=== PATIENT | male | born 1980 | race Caucasian/White ===

== ENCOUNTER 2019-07-19 07:48 | Emergency (ER) | payer MEDICARE, OTHER ==
[2019-07-19 07:53] VITALS: BP 140/91; PULSE 105; RESP 18; TEMP 98.5
[2019-07-19] MEDS ORDERED: PROPARACAINE 0.5% OPHTH DROPS 15 ML BTL RIGHT EYE STA (07:56)
[2019-07-19] MEDS ORDERED: FLUORESCEIN STRIPS 1 MG STRIP RIGHT EYE ONE (07:56)
[2019-07-19] MEDS ORDERED: DIPH,PERTUS(ACELL)TETVAC-LF 0.5 ML VIAL IM ONE (08:02)
--- NOTE | 2019-07-19 08:17 | ED ---
General Adult HPI - General Chief complaint: Eye Problems Stated complaint: metal in eye Time Seen by Provider: 07/19/19 07:51 Source: patient, family, RN notes reviewed, old records reviewed Mode of arrival: ambulatory Limitations: no limitations - History of Present Illness Initial comments: 38 yo male presenting for evaluation of suspected foreign body in the right eye. Patient had been cutting metal on Thursday which was 3 days prior to today. He was not wearing safety glasses. He does not wear contact lenses. He's felt an irritation in his right eye since that time. He denies any vision changes. No other injury reported, uncertain of his tetanus status. - Related Data Previous Rx's Medication Instructions Recorded Erythromycin Ophth Oint [Romycin 1 applic RIGHT EYE QID #1 gm 07/19/19 Ophth Oint] Allergies Allergy/AdvReac Type Severity Reaction Status Date / Time No Known Allergies Allergy Verified 07/19/19 07:53 Review of Systems ROS Statement: Those systems with pertinent positive or pertinent negative responses have been documented in the HPI. ROS Other: All systems not noted in ROS Statement are negative. Past Medical History Past Medical History: No Reported History History of Any Multi-Drug Resistant Organisms: None Reported Past Surgical History: No Surgical Hx Reported Past Psychological History: No Psychological Hx Reported Smoking Status: Never smoker Past Alcohol Use History: None Reported Past Drug Use History: None Reported General Exam Limitations: no limitations General appearance: alert, in no apparent distress Head exam: Present: atraumatic, normocephalic Eye exam: Present: PERRL, conjunctival injection, other (Corneal foreign body with rust ring at the 3 o'clock position of the right cornea. There is negative Bong's test. Minimal uptake at the site of injury.) ENT exam: Present: normal exam Neck exam: Present: normal inspection. Absent: tenderness, meningismus Respiratory exam: Present: normal lung sounds bilaterally. Absent: respiratory distress Cardiovascular Exam: Present: regular rate, normal rhythm Course Vital Signs 07/19/19 07:51 Temperature 98.5 F Pulse Rate 105 H Respiratory 18 Rate Blood Pressure 140/91 O2 Sat by Pulse 99 Oximetry Medical Decision Making - Medical Decision Making 38-year-old male with corneal foreign body and rust ring. Anterior chamber is clear. Pupils are equal round react to light. He has significant injection of the sclera and conjunctiva. He is some purulent drainage from the eye itself. Foreign body is deeply embedded within the cornea. Will require close follow-up with ophthalmology. We did call Dr. Norman, he will see him in the office in 90 minutes. Patient given erythromycin ointment RX Disposition Clinical Impression: Corneal abrasion, Corneal foreign body Disposition: HOME SELF-CARE Condition: Good Instructions (If sedation given, give patient instructions): Eye Foreign Body (ED), Corneal Abrasion (ED) Prescriptions: Erythromycin Ophth Oint [Romycin Ophth Oint] 1 applic RIGHT EYE QID #1 gm Is patient prescribed a controlled substance at d/c from ED?: No Referrals: Kenn Beverly MD [Primary Care Provider] - 1-2 days Joel Norman MD [STAFF PHYSICIAN] - 1-2 days Time of Disposition: 08:24
== END 2019-07-19 08:37 | disposition home or self-care (01) ==
LOC: EC 07:48
DX: T15.01XA Foreign body in cornea, right eye, initial encounter (principal); Z23 Encounter for immunization
CPT/HCPCS: 90471; 90715; 99283

== ENCOUNTER → 2019-09-06 | Outpatient (CLI) | payer MEDICARE, OTHER ==
--- NOTE | 2019-09-06 16:39 | XR ---
EXAMINATION TYPE: XR knee complete RT DATE OF EXAM: 09/06/2019 COMPARISON: None HISTORY: Injury, pain TECHNIQUE: Three-view right knee FINDINGS: There is a lucency extending from the tibial spines into the metaphysis of the tibia compat ible with a longitudinal fracture. Small joint effusion remains present. Anterior superior patellar spur is noted. No additional areas suspicious for fracture is evident. IMPRESSION: 1. Longitudinal fracture extending into the metaphysis from the tibial spine region. This could be b ernst evaluated with CT. A Taylor level critical message alert has been initiated for Kenn Beverly MD via the [employer] Critical Results System on 09/06/2019 4:36 PM. This message alert has been sent to Kenn Beverly MD via the preferences provided by the clinician for the receipt of Radiology Critical Findings. Message ID [id number].
== END | disposition home or self-care (01) ==
LOC: RADXRMAIN 16:01
PROVIDERS: ATTEND Internal Medicine
DX: S82.111A Displaced fracture of right tibial spine, initial encounter for closed fracture (principal)

== ENCOUNTER → 2019-09-23 | Outpatient (CLI) | payer MEDICARE, OTHER ==
--- NOTE | 2019-09-23 14:17 | CT ---
EXAMINATION TYPE: CT knee RT wo con DATE OF EXAM: 09/23/2019 COMPARISON: X-ray 09/06/2019 HISTORY: Right knee-displaced fracture of lateral condyle CT DLP: 394.6 mGycm Automated exposure control for dose reduction was used. FINDINGS: There is a mildly displaced fracture involving the intercondylar notch extending to the articular ezra face. The fracture line does extend into the proximal epiphysis of the tibia. Approximate fracture line dis placement measurement of 1.3 mm. Note is made that the fracture extends through both ends of the inte rcondylar notch with free fragment fracture noted. Remaining osseous structures intact. Small amount of fluid in the suprapatellar bursa. There is soft tissue edema noted. IMPRESSION: MILDLY DISPLACED INTRA-ARTICULAR FRACTURE OF THE INTERCONDYLAR NOTCH EXTENDING INTO THE PROXIMAL TIBI A WITH DISPLACEMENT MEASURING APPROXIMATELY 1.3 MM.
== END | disposition home or self-care (01) ==
LOC: RADCTMAIN 13:12
PROVIDERS: ATTEND Orthopaedic Surgery
DX: S82.121A Displaced fracture of lateral condyle of right tibia, initial encounter for closed fracture (principal)

== ENCOUNTER → 2020-07-23 | Outpatient (CLI) | payer MEDICARE, OTHER ==
--- NOTE | 2020-07-23 08:20 | US ---
EXAMINATION TYPE: US liver DATE OF EXAM: 07/23/2020 COMPARISON: NONE CLINICAL HISTORY: R945 Abnormal Liver Function. Abnormal labs EXAM MEASUREMENTS: Liver Length: 14.4 cm Gallbladder Wall: 0.2 cm CBD: 0.3 cm Right Kidney: 10.4 x 3.7 x 4.0 cm Pancreas: Obscured by bowel gas Liver: Visualized portions appeared wnl Gallbladder: wnl Evidence for sonographic Vaca's sign: No CBD: wnl Right Kidney: wnl IMPRESSION: 1. No acute process.
== END | disposition home or self-care (01) ==
LOC: RADUSWWP 07:36
PROVIDERS: ATTEND Internal Medicine
DX: R94.5 Abnormal results of liver function studies (principal)
CPT/HCPCS: 76705

== ENCOUNTER → 2022-01-22 | Outpatient (CLI) | payer MEDICARE, OTHER ==
--- NOTE | 2022-01-23 08:53 | USB ---
Reason for Exam: Follow-up at short interval from prior study. Technique: Method: Whole Breast Handheld. Findings: The whole breast of the right breast, the axilla of the right breast and the retroareolar of the right breast were scanned. A complete US of all four quadrants of the breast and retro-areolar region were reviewed. No solid or cystic masses are identified. Normal appearing right axillary lymph node marked towards end of study. Overall Assessment: Negative, BI-RAD 1 Management: Clinical Management of the right breast. Managed clinically patient's symptoms of pain. Results were given to the patient verbally at the time of exam. Electronically signed and approved by: Jose Chandler M.D.
== END | disposition home or self-care (01) ==
LOC: RADUSWWP 06:57
PROVIDERS: ATTEND Internal Medicine
DX: N64.4 Mastodynia (principal)

== ENCOUNTER → 2022-07-21 | Outpatient (CLI) | payer MEDICARE, OTHER ==
--- NOTE | 2022-07-21 11:36 | CA ---
Stress Echo Report Mahin Elizabeth Age: 41 Gender: M : 1980 Exam Date: 07/21/2022 10:18 Exam Location: [place] Stress Ht (in): 68 Wt (lb): 178 Ordering Physician: Kenn Beverly MD Referring Physician: MEREDITH, It Engineer: Patrick Mcclellan Technologist Procedure CPT: Indication: R07.9 ICD-9 Codes: Rhythm: Patient History: Cardiac Medications: NONE Medications in past 24 hours: Contrast: Stress Results Protocol: Joseph Total dose(mL): Exercise Duration (min:sec): 6:[address] Depression (mm): Angina Score: Rizvi Score: METS: 8.1 Resting HR: 93 Resting BP: 120 / 78 Peak HR: 166 Peak BP: / 96 Max Predicted HR: 179 93 % Max Predicted HR Target HR: 152 Double Product: Stress Summary: The patient's target heart rate was achieved BP Response: Normal Reason for Termination: Reached target heart rate or work-load Cardiac Symptoms: NO SYMPTOMS ECG Analysis Resting ECG: Normal sinus rhythm, normal ECG Stress ECG: No abnormal ST/T wave changes with exercise Arrhythmia: None Echo Analysis Resting Echo: Normal resting echocardiogram. Peak Echo Analysis: The global left ventricular systolic function improved with stress. MEASUREMENTS (Male/Female) Normal Values CONCLUSIONS No ECG evidence of ischemia with exercise. Normal treadmill stress echocardiogram. Dr. Flaquito Bullock MD (Electronically Signed) Final Date: 21 Jul 2022 11:35
== END | disposition home or self-care (01) ==
LOC: RADNMMAIN 10:03
PROVIDERS: ATTEND Internal Medicine
DX: R07.9 Chest pain, unspecified (principal)
CPT/HCPCS: 93351

== ENCOUNTER 2022-07-30 16:03 | Inpatient (IN) | payer MEDICARE, OTHER ==
[2022-07-30] MEDS ORDERED: ONDANSETRON 4 MG/2 ML VIAL IVP STA (16:24)
[2022-07-30] MEDS ORDERED: SODIUM CHLORIDE 0.9% 1,000 ML IV STA (16:24)
[2022-07-30 17:18] LABS: Basophils % (A) 0 %; Eosinophils # (A) 0.1 k/uL (0-0.7); Eosinophils % (A) 0 %; HCT 43.6 % (39.0-53.0); HGB 14.9 gm/dL (13.0-17.5); Lymphocytes # (A) 0.5 k/uL (1.0-4.8); Lymphocytes % (A) 3 %; MCH 28.7 pg (25.0-35.0); MCHC 34.2 g/dL (31.0-37.0); MCV 83.9 fL (80.0-100.0); Mean Platelet Volume 8.6; Monocytes # (A) 0.9 k/uL (0-1.0); Monocytes % (A) 6 %; Neutrophils # (A) 13.6 k/uL (1.3-7.7); Neutrophils % (A) 90 %; Platelet Count 209 k/uL (150-450); RDW 13.3 % (11.5-15.5)
[2022-07-30 17:20] LABS: ALT 30 U/L (4-49); AST 22 U/L (17-59); African American GFR (CKD) >90 (>60 ml/min/1.73 sqM); Albumin 2.9 g/dL (3.5-5.0); Alkaline Phosphatase 49 U/L (38-126); Amylase 38 U/L (30-110); Anion Gap 7 mmol/L; Blood Urea Nitrogen 9 mg/dL (9-20); Calcium 7.2 mg/dL (8.4-10.2); Carbon Dioxide 20 mmol/L (22-30); Chloride 110 mmol/L (98-107); Glucose 114 mg/dL (74-99); Lipase 26 U/L (23-300); Non-African American GFR(CKD) >90 (>60 ml/min/1.73 sqM); Potassium 3.2 mmol/L (3.5-5.1); Sodium 137 mmol/L (137-145); Total Bilirubin 0.8 mg/dL (0.2-1.3); Total Protein 5.4 g/dL (6.3-8.2)
[2022-07-30] MEDS ORDERED: POTASSIUM CHLORIDE ER 20 MEQ TAB.ER PO STA (17:32)
--- NOTE | 2022-07-30 17:39 | CT ---
EXAMINATION TYPE: CT abdomen pelvis w con CT DLP: 818.6 mGycm, Automated exposure control for dose reduction was used. DATE OF EXAM: 07/30/2022 5:33 PM COMPARISON: None CLINICAL INDICATION:Male, 41 years old with history of abd pain; RLQ pain TECHNIQUE: Axial CT of the abdomen and pelvis. Sagittal and coronal reformats were created on a [employer] workstation. Contrast used:100 mL of Isovue 370 with IV Contrast, Oral contrast used: without Oral Contrast FINDINGS: LOWER CHEST: Unremarkable ABDOMEN LIVER: Unremarkable GALLBLADDER AND BILE DUCTS: Unremarkable. PANCREAS: Unremarkable. SPLEEN: Unremarkable. ADRENAL GLANDS: Unremarkable. KIDNEYS AND URETERS: No evidence of hydronephrosis or renal calculus. The ureters are unremarkable. PELVIS BLADDER: Unremarkable REPRODUCTIVE: Unremarkable. ABDOMEN & PELVIS STOMACH AND BOWEL: Small hiatal hernia, duodenum is unremarkable No evidence of bowel obstruction. Th ere is a tubular structure felt to represent the appendix in the right lower quadrant which is disten ded extending off the cecum and blind-ending measuring up to 11 mm. There is some fat stranding buckley es around this structure. No evidence of organizing fluid collection or pneumoperitoneum. PERITONEUM/RETROPERITONEUM: No evidence of pneumoperitoneum or free fluid. VASCULATURE: No evidence of aortic aneurysm. MUSCULOSKELETAL: No acute osseous abnormalities LYMPH NODES: No gross evidence for lymphadenopathy. SOFT TISSUE/ABDOMINAL WALL: Unremarkable IMPRESSION: Acute uncomplicated appendicitis.
[2022-07-30] MEDS ORDERED: PIPERACILLIN-TAZOBACTAM 3.375 GM in SODIUM CHLORIDE 0.9% 100 ML IVPB STA (18:06)
[2022-07-30] MEDS ORDERED: KETOROLAC 15 MG/ML 1 ML VIAL IVP PRN (18:11)
[2022-07-30] MEDS ORDERED: ONDANSETRON 4 MG/2 ML VIAL IVP PRN (18:11)
[2022-07-30] MEDS ORDERED: ACETAMINOPHEN TAB 325 MG TAB PO PRN (18:11)
[2022-07-30] MEDS ORDERED: NALOXONE 0.4 MG/ML 1 ML VIAL IV PRN (18:11)
[2022-07-30] MEDS ORDERED: AMPICILLIN-SULBACTAM 3 GM in SODIUM CHLORIDE 0.9% 100 ML IVPB STA (18:18)
--- NOTE | 2022-07-30 18:20 | ED ---
General Adult HPI - General Chief complaint: Abdominal Pain Stated complaint: poss appendix-sent from drs Time Seen by Provider: 07/30/22 16:11 Source: patient, family, RN notes reviewed Mode of arrival: ambulatory Limitations: no limitations - History of Present Illness Initial comments: 41-year-old male presents emergency Department with chief complaint of abdominal pain. Patient states that the pain started around 0400 today. Patient reports nausea and unwillingness to eat. He did have some water today but otherwise nothing else to eat or drink. He states that the pain is in his right lower quadrant with no radiation. He states that it is worse with urination. He reports that he had a normal bowel movement this morning. He reports chills and a fever at Dr. Beverly's office. He has not taken anything for pain or fever. Denies prior abdominal surgeries. He states he is otherwise healthy and takes no medications daily. No allergies to medications - Related Data Home Medications Medication Instructions Recorded Confirmed No Known Home Medications 07/30/22 07/30/22 Allergies Allergy/AdvReac Type Severity Reaction Status Date / Time No Known Allergies Allergy Verified 07/30/22 16:39 Review of Systems ROS Statement: Those systems with pertinent positive or pertinent negative responses have been documented in the HPI. ROS Other: All systems not noted in ROS Statement are negative. Past Medical History Past Medical History: No Reported History History of Any Multi-Drug Resistant Organisms: None Reported Past Surgical History: No Surgical Hx Reported Past Psychological History: No Psychological Hx Reported Smoking Status: Never smoker Past Alcohol Use History: None Reported Past Drug Use History: None Reported General Exam Limitations: no limitations General appearance: alert, in no apparent distress Head exam: Present: atraumatic, normocephalic, normal inspection Eye exam: Present: normal appearance ENT exam: Present: mucous membranes dry Respiratory exam: Present: normal lung sounds bilaterally. Absent: respiratory distress, wheezes, rales, rhonchi, stridor Cardiovascular Exam: Present: normal rhythm, tachycardia GI/Abdominal exam: Present: distended, tenderness (Right lower quadrant tenderness, positive Rovsing sign), normal bowel sounds. Absent: guarding, re bound, rigid Extremities exam: Present: normal inspection Back exam: Present: normal inspection. Absent: CVA tenderness (R), CVA tenderness (L) Neurological exam: Present: alert, oriented X3 Psychiatric exam: Present: normal affect, normal mood Skin exam: Present: warm, dry, intact, normal color. Absent: rash Course Vital Signs 07/30/22 07/30/22 16:06 18:47 Temperature 98.1 F 100.7 F H Pulse Rate 117 H 117 H Respiratory 18 19 Rate Blood Pressure 117/81 129/85 O2 Sat by Pulse 97 96 Oximetry Medical Decision Making - Medical Decision Making Was pt. sent in by a medical professional or institution (, PA, CRAB BACKER, urgent care, hospital, or custodial...) When possible be specific @ -patient was sent in by Dr. Beverly for evaluation of right lower quadrant pain Did you speak to anyone other than the patient for history (EMS, parent, family, police, friend...)? What history was obtained from this source @ -No Did you review nursing and triage notes (agree or disagree)? Why? @ -I reviewed and agree with nursing and triage notes Were old charts reviewed (outside hosp., previous admission, EMS record, old EKG , old radiological studies, urgent care reports/EKG's, custodial records)? Report findings @ -No old charts were reviewed Differential Diagnosis (chest pain, altered mental status, abdominal pain women, abdominal pain men, vaginal bleeding, weakness, fever, dyspnea, syncope, headache, dizziness, GI bleed, back pain, seizure, CVA, palpatations, mental health, musculoskeletal)? @ -Differential Abdominal Pain Men: Appendicitis, cholecystitis, diverticulosis, ischemic bowel, pancreatitis, hepatitis, UTI, gastroenteritis, AAA, incarcerated hernia, bowel obstruction, constipation, inflammatory bowel, hepatitis, peptic ulcer disease, splenic infarction, perforated viscus, testicular torsion, this is not meant to be an all-inclusive list] EKG interpreted by me (3pts min.). @ -None X-rays interpreted by me (1pt min.). @ -None done CT interpreted by me (1pt min.). @ -CT abdomen pelvis with contrast showed acute uncomplicated appendicitis U/S interpreted by me (1pt. min.). @ -None done What testing was considered but not performed or refused? (CT, X-rays, U/S, l abs)? Why? @ -None What meds were considered but not given or refused? Why? @ -None Did you discuss the management of the patient with other professionals (professionals i.e. , PA, CRAB BACKER, lab, RT, psych nurse, licensed social worker, wood machinist apprentice, teacher, customs and border protection officer, leather case finisher)? Give summary @ -The case was discussed with Dr. Benavidez who is accepting of that admission. Dr. Benavidez would like the patient to be on a clear liquid diet from now until midnight when he should be nothing by mouth, Dr. Benavidez requested Unasyn for the patient Was smoking cessation discussed for >3mins.? @ -No Was critical care preformed (if so, how long)? @ -No Were there social determinants of health that impacted care today? How? (Homelessness, low income, unemployed, alcoholism, drug addiction, transportation, low edu. Level, literacy, decrease access to med. care, prison, rehab)? @ -No Was there de-escalation of care discussed even if they declined (Discuss DNR or withdrawal of care, Hospice)? DNR status @ -No What co-morbidities impacted this encounter? (DM, HTN, Smoking, COPD, CAD, Cancer, CVA, ARF, Chemo, Hep., AIDS, mental health diagnosis, sleep apnea, morbid obesity)? @ -None Was patient admitted / discharged? Hospital course, mention meds given and route, prescriptions, significant lab abnormalities, going to OR and other pertinent info. @ -Admitted. Patient presented to the emergency department chief complaint of right lower quadrant pain since this morning and was sent in from his primary care provider. On exam patient is tender in the right lower quadrant, positive Rovsing sign, mildly distended with guarding, no rebound tenderness. Patient was given 1 L of normal saline and Zofran. Labs were obtained which showed CBC 15, hemoglobin 14.9, hematocrit 43 6, neutrophils 13.6; CMP showed potassium 3.2, chloride 110, calcium 7.2 with corrected potassium 8.1, albumin 2.9; lipase 26. CT abdomen and pelvis showed acute appendicitis. Case was discussed with Dr. Benavidez who is accepting of the admission and recommends Unasyn, nothing by mouth after midnight. Patient was given unasyn. Patient stable at time of admission. Case discussed with my attending, Dr. Rudolph Undiagnosed new problem with uncertain prognosis? @ -No Drug Therapy requiring intensive monitoring for toxicity (Heparin, Nitro, I nsulin, Cardizem)? @ -No Were any procedures done? @ -No Diagnosis/symptom? @ -Appendicitis Acute, or Chronic, or Acute on Chronic? @ -Acute Uncomplicated (without systemic symptoms) or Complicated (systemic symptoms)? @ -default Side effects of treatment? @ -No Exacerbation, Progression, or Severe Exacerbation? @ -No Poses a threat to life or bodily function? How? (Chest pain, [place], [place], pneumonia, PE, COPD, DKA, ARF, appy, cholecystitis, CVA, Diverticulitis, Homicidal, Suicidal, threat to staff... and all critical care pts) @ -Appendicitis - Lab Data Result diagrams: 07/30/22 16:55 07/30/22 16:55 Lab Results 07/30/22 07/30/22 07/30/22 Range/Units 16:55 16:55 16:55 WBC 15.0 H (3.8-10.6) k/uL RBC 5.20 (4.30-5.90) m/uL Hgb 14.9 (13.0-17.5) gm/dL Hct 43.6 (39.0-53.0) % MCV 83.9 (80.0-100.0) fL MCH 28.7 (25.0-35.0) pg MCHC 34.2 (31.0-37.0) g/dL RDW 13.3 (11.5-15.5) % Plt Count 209 (150-450) k/uL MPV 8.6 Neutrophils % 90 % Lymphocytes % 3 % Monocytes % 6 % Eosinophils % 0 % Basophils % 0 % Neutrophils # 13.6 H (1.3-7.7) k/uL Lymphocytes # 0.5 L (1.0-4.8) k/uL Monocytes # 0.9 (0-1.0) k/uL Eosinophils # 0.1 (0-0.7) k/uL Basophils # 0.0 (0-0.2) k/uL Sodium 137 (137-145) mmol/L Potassium 3.2 L (3.5-5.1) mmol/L Chloride 110 H (98-107) mmol/L Carbon Dioxide 20 L (22-30) mmol/L Anion Gap 7 mmol/L BUN 9 (9-20) mg/dL Creatinine 0.59 L (0.66-1.25) mg/dL Est GFR (CKD-EPI)AfAm >90 (>60 ml/min/1.73 sqM) Est GFR (CKD-EPI)NonAf >90 (>60 ml/min/1.73 sqM) Glucose 114 H (74-99) mg/dL Lactic Ac Sepsis Rflx Plasma Lactic Acid Riaz 2.2 H* (0.7-2.0) mmol/L Calcium 7.2 L (8.4-10.2) mg/dL Total Bilirubin 0.8 (0.2-1.3) mg/dL AST 22 (17-59) U/L ALT 30 (4-49) U/L Alkaline Phosphatase 49 (38-126) U/L Total Protein 5.4 L (6.3-8.2) g/dL Albumin 2.9 L (3.5-5.0) g/dL Amylase 38 (30-110) U/L Lipase 26 (23-300) U/L 07/30/22 Range/Units 18:00 WBC (3.8-10.6) k/uL RBC (4.30-5.90) m/uL Hgb (13.0-17.5) gm/dL Hct (39.0-53.0) % MCV (80.0-100.0) fL MCH (25.0-35.0) pg MCHC (31.0-37.0) g/dL RDW (11.5-15.5) % Plt Count (150-450) k/uL MPV Neutrophils % % Lymphocytes % % Monocytes % % Eosinophils % % Basophils % % Neutrophils # (1.3-7.7) k/uL Lymphocytes # (1.0-4.8) k/uL Monocytes # (0-1.0) k/uL Eosinophils # (0-0.7) k/uL Basophils # (0-0.2) k/uL Sodium (137-145) mmol/L Potassium (3.5-5.1) mmol/L Chloride (98-107) mmol/L Carbon Dioxide (22-30) mmol/L Anion Gap mmol/L BUN (9-20) mg/dL Creatinine (0.66-1.25) mg/dL Est GFR (CKD-EPI)AfAm (>60 ml/min/1.73 sqM) Est GFR (CKD-EPI)NonAf (>60 ml/min/1.73 sqM) Glucose (74-99) mg/dL Lactic Ac Sepsis Rflx Y Plasma Lactic Acid Riaz (0.7-2.0) mmol/L Calcium (8.4-10.2) mg/dL Total Bilirubin (0.2-1.3) mg/dL AST (17-59) U/L ALT (4-49) U/L Alkaline Phosphatase (38-126) U/L Total Protein (6.3-8.2) g/dL Albumin (3.5-5.0) g/dL Amylase (30-110) U/L Lipase (23-300) U/L Disposition Clinical Impression: Acute appendicitis Disposition: ADMITTED IP TO THIS HOSP Condition: Stable Is patient prescribed a controlled substance at d/c from ED?: No Time of Disposition: 18:24
[2022-07-30 20:52] LABS: Appearance,Urine Clear (Clear); Bilirubin,Urine Negative (Negative); Blood,Urine Negative (Negative); Color,Urine Colorless; Glucose,Urine (UA) Negative (Negative); Ketones,Urine Negative (Negative); Leukocyte Esterase,Urine Negative (Negative); Nitrite,Urine Negative (Negative); Protein,Urine Negative (Negative); Specific Gravity,Urine 1.024 (1.001-1.035); Urobilinogen,Urine <2.0 mg/dL (<2.0)
[2022-07-30] MEDS ORDERED: HYDROmorphone 1 MG/ML 1 ML SYRINGE IVP PRN (22:21)
[2022-07-30] MEDS: SODIUM CHLORIDE 0.9% 1,000 ML with POTASSIUM CHLORIDE 40 MEQ IV SCH ×2 (23:22)
[2022-07-30] MEDS: KETOROLAC 15 MG/ML 1 ML VIAL IVP SCH (23:26)
[2022-07-31] MEDS: KETOROLAC 15 MG/ML 1 ML VIAL IVP SCH ×3 (05:19→17:23)
[2022-07-31] MEDS: PIPERACILLIN-TAZOBACTAM 3.375 GM in SODIUM CHLORIDE 0.9% 100 ML IVPB SCH ×2 (09:43→16:14)
[2022-07-31] MEDS: HEPARIN SODIUM,PORCINE/PF 5,000 UNIT/0.5 ML SYRINGE SQ SCH ×2 (09:43→20:18)
--- NOTE | 2022-07-31 09:58 | P.GSHP ---
History of Present Illness H&P Date: 07/31/22 CHIEF COMPLAINT: Abdominal pain HISTORY OF PRESENT ILLNESS: This is a 41-year-old male who presented with abdominal pain in the right lower quadrant. He reports that pain started suddenly yesterday morning around 4 AM. He did have one episode of vomiting. He has been having chills and did have a low-grade temp of a high 0.7 on admission. He was tachycardic with elevated white count and elevated lactic acid. Computed tomography scan did show evidence of acute appendicitis. Patient reports that he has been having regular bowel movements. Denies any prior surgical history. Denies any prior medical history. PAST MEDICAL HISTORY: See list. PAST SURGICAL HISTORY: See list. MEDICATIONS: See list. ALLERGIES: See list. SOCIAL HISTORY: No illicit drug use. REVIEW OF SYSTEMS: CONSTITUTIONAL: Denies fever or chills. HEENT: Denies blurred vision, vision changes, or eye pain. Denies hemoptysis ENDOCRINE: Denies heat or cold intolerance. CARDIOVASCULAR: Denies chest pain or pressure. RESPIRATORY: No shortness of breath. GASTROINTESTINAL: Please refer to HPI otherwise unremarkable NEURO: Denies history of seizures. PSYCH: No depression or suicidal ideation HEMATOLOGIC: Denies bleeding disorders. LYMPHATIC: The patient denies any lumps and bumps around the neck. GENITOURINARY: Denies any blood in urine or increased urinary frequency. MUSCULOSKELETAL: Denies myalgias. Denies joint swelling. Denies decreased range of motion beyond patients baseline. SKIN: Denies pruitis. Denies rash. PHYSICAL EXAM: VITAL SIGNS: Reviewed GENERAL: Well-developed in no acute distress. HEENT: No sclera icterus. Extraocular movements grossly intact. Moist buccal mucosa. Head is atraumatic, normocephalic. Hears conversational speech. No nasal drainage. NECK: Supple without lymphadenopathy. CHEST: Non-labored respirations and equal bilateral excursions. CARDIOVASCULAR: Palpable 2+ radial pulses. ABDOMEN: Soft. Nondistended. Tenderness with palpation of the right lower quadrant MUSCULOSKELETAL: No clubbing or cyanosis. NEUROLOGIC: No focal or lateralizing signs. Cranial nerves II through XII grossly intact. PSYCH: Appropriate affect. Alert and oriented to person, place and time. SKIN: Well perfused. Good skin turgor. LABORATORY DATA: WBC is 15 Hgb 14.9 platelets 209 Sodium is 137 potassium 3.2 creatinine 0.59 Lactic acid 2.2 down to 1.0 LFTs normal lipase 26 Urinalysis negative for infection IMAGING: Computed tomography scan evidence of acute uncomplicated appendicitis ASSESSMENT: 1. Acute appendicitis 2. Hypokalemia PLAN: -Patient scheduled for Robotic appendectomy today with Dr. Benavidez -Keep patient nothing by mouth -Continue IV antibiotics -Continue IV fluids -Continue supportive care -Potassium was replaced. Awaiting repeat potassium level Physician Clock Repairer note has been reviewed by physician. Signing provider agrees with the documented findings, assessment, and plan of care. Past Medical History Past Medical History: No Reported History History of Any Multi-Drug Resistant Organisms: None Reported Past Surgical History: No Surgical Hx Reported Past Psychological History: No Psychological Hx Reported Smoking Status: Never smoker Past Alcohol Use History: None Reported Past Drug Use History: None Reported Medications and Allergies Home Medications Medication Instructions Recorded Confirmed Type No Known Home Medications 07/30/22 07/30/22 History Allergies Allergy/AdvReac Type Severity Reaction Status Date / Time No Known Allergies Allergy Verified 07/30/22 16:39 Surgical - Exam Vital Signs Temp Pulse Resp BP Pulse Ox 98.1 F 117 H 18 117/81 97 07/30/22 16:06 07/30/22 16:06 07/30/22 16:06 07/30/22 16:06 07/30/22 16:06 Results - Labs 07/30/22 16:55 07/30/22 16:55 Abnormal Lab Results - Last 24 Hours (Table) 07/30/22 07/30/22 07/30/22 Range/Units 16:55 16:55 16:55 WBC 15.0 H (3.8-10.6) k/uL Neutrophils # 13.6 H (1.3-7.7) k/uL Lymphocytes # 0.5 L (1.0-4.8) k/uL Potassium 3.2 L (3.5-5.1) mmol/L Chloride 110 H (98-107) mmol/L Carbon Dioxide 20 L (22-30) mmol/L Creatinine 0.59 L (0.66-1.25) mg/dL Glucose 114 H (74-99) mg/dL Plasma Lactic Acid Riaz 2.2 H* (0.7-2.0) mmol/L Calcium 7.2 L (8.4-10.2) mg/dL Total Protein 5.4 L (6.3-8.2) g/dL Albumin 2.9 L (3.5-5.0) g/dL Diabetes panel 07/30/22 Range/Units 16:55 Sodium 137 (137-145) mmol/L Potassium 3.2 L (3.5-5.1) mmol/L Chloride 110 H (98-107) mmol/L Carbon Dioxide 20 L (22-30) mmol/L BUN 9 (9-20) mg/dL Creatinine 0.59 L (0.66-1.25) mg/dL Glucose 114 H (74-99) mg/dL Calcium 7.2 L (8.4-10.2) mg/dL AST 22 (17-59) U/L ALT 30 (4-49) U/L Alkaline Phosphatase 49 (38-126) U/L Total Protein 5.4 L (6.3-8.2) g/dL Albumin 2.9 L (3.5-5.0) g/dL Calcium panel 07/30/22 Range/Units 16:55 Calcium 7.2 L (8.4-10.2) mg/dL Albumin 2.9 L (3.5-5.0) g/dL Pituitary panel 07/30/22 Range/Units 16:55 Sodium 137 (137-145) mmol/L Potassium 3.2 L (3.5-5.1) mmol/L Chloride 110 H (98-107) mmol/L Carbon Dioxide 20 L (22-30) mmol/L BUN 9 (9-20) mg/dL Creatinine 0.59 L (0.66-1.25) mg/dL Glucose 114 H (74-99) mg/dL Calcium 7.2 L (8.4-10.2) mg/dL Adrenal panel 07/30/22 Range/Units 16:55 Sodium 137 (137-145) mmol/L Potassium 3.2 L (3.5-5.1) mmol/L Chloride 110 H (98-107) mmol/L Carbon Dioxide 20 L (22-30) mmol/L BUN 9 (9-20) mg/dL Creatinine 0.59 L (0.66-1.25) mg/dL Glucose 114 H (74-99) mg/dL Calcium 7.2 L (8.4-10.2) mg/dL Total Bilirubin 0.8 (0.2-1.3) mg/dL AST 22 (17-59) U/L ALT 30 (4-49) U/L Alkaline Phosphatase 49 (38-126) U/L Total Protein 5.4 L (6.3-8.2) g/dL Albumin 2.9 L (3.5-5.0) g/dL
[2022-07-31 11:41] LABS: African American GFR (CKD) 107.9 (60.0-200.0); Anion Gap 8.9 mmol/L (10.00-18.00); BUN/Creat Ratio 10.7 Ratio (12.00-20.00); Blood Urea Nitrogen 10.7 mg/dL (9.0-27.0); Calcium 9.3 mg/dL (8.7-10.3); Carbon Dioxide 24.9 mmol/L (20.0-27.5); Non-African American GFR(CKD) 93.1 (60.0-200.0); Potassium 4.6 mmol/L (3.5-5.5)
[2022-07-31 12:18] LABS: Basophils # (A) 0.03 X 10*3/uL (0.00-0.10); Basophils % (A) 0.3 %; Eosinophils # (A) 0.09 X 10*3/uL (0.04-0.35); Eosinophils % (A) 0.8 %; HCT 42.3 % (39.6-50.0); HGB 14.5 g/dL (13.0-17.0); Immature Grans, Automated 0.3 %; Lymphocytes # (A) 1.26 X 10*3/uL (0.90-5.00); MCH 29.1 pg (27.0-32.0); MCHC 34.3 g/dL (32.0-37.0); MCV 84.9 fL (80.0-97.0); Mean Platelet Volume 11.7 fL (9.5-12.2); Monocytes # (A) 0.95 X 10*3/uL (0.20-1.00); Monocytes % (A) 8.3 %; NRBC Per 100 WBC 0 /100 WBCS (0.0-0.0); Neutrophils % (A) 79.3 %; Platelet Count 220 X 10*3/uL (140-440); RBC 4.98 X 10*6/uL (4.40-5.60); RDW 13.7 % (11.5-14.5); WBC 11.47 X 10*3/uL (4.50-10.00)
[2022-07-31] MEDS: SODIUM CHLORIDE 0.9% 1,000 ML with POTASSIUM CHLORIDE 40 MEQ IV SCH ×2 (13:26)
--- NOTE | 2022-07-31 16:39 | P.CONS ---
History of Present Illness - Reason for Consult Consult date: 07/31/22 - History of Present Illness Mahin Elizabeth, is a 41-year-old male who presented to [facility] emergency room with a chief complaint of abdominal pain He was evaluated in the emergency room vital examination on presentation revealed a temperature of 100.7 pulse 117 respiration 19 and blood pressure 129/85 pulse ox 96% on room air Laboratory data revealed a white blood count of 15.0 hemoglobin 14.9 platelet count 209 sodium 137 potassium 3.2 chloride 110 CO2 20 BUN 9 creatinine 0.59 lactic acid 2.2 Testing in the emergency room revealed computed tomography scan of the abdomen and pelvis was done in the emergency room and revealed evidence of acute uncomplicated appendicitis Patient was admitted to medical floor for further evaluation and treatment Past Medical History Past Medical History: No Reported History History of Any Multi-Drug Resistant Organisms: None Reported Past Surgical History: No Surgical Hx Reported Past Psychological History: No Psychological Hx Reported Smoking Status: Never smoker Past Alcohol Use History: None Reported Past Drug Use History: None Reported Medications and Allergies Home Medications Medication Instructions Recorded Confirmed Type No Known Home Medications 07/30/22 07/30/22 History Allergies Allergy/AdvReac Type Severity Reaction Status Date / Time No Known Allergies Allergy Verified 07/30/22 16:39 Physical Exam Vitals: Vital Signs Temp Pulse Pulse Resp BP BP Pulse Ox 07/31/22 07:27 98.3 F 77 18 107/68 97 07/31/22 00:46 98.8 F 92 15 111/67 94 L 07/30/22 20:00 15 07/30/22 19:48 98.4 F 111 H 15 120/75 94 L 07/30/22 18:47 100.7 F H 117 H 19 129/85 96 07/30/22 16:06 98.1 F 117 H 18 117/81 97 Intake and Output 07/30/22 07/31/22 07/31/22 22:59 06:59 14:59 Intake Total 900 Balance 900 Intake: Intake, IV Titration 900 Amount Ampicillin-Sulbactam 3 gm 100 In Sodium Chloride 0.9% 100 ml @ 200 mls/hr IVPB ONCE STA Rx#:[id number] Sodium Chloride 0.9% 1, 800 000 ml @ 75 mls/hr IV . [id number] HARRY with Potassium Chloride 40 meq Rx#:[id number] Other: Voiding Method Toilet # Voids 2 Weight 78.925 kg In general patient is alert and oriented x 3 in no distress HEENT head normocephalic and atraumatic Neck is supple no JVD no goiter no lymphadenopathy no carotid bruit Chest examination is clear to auscultation no crackles no wheezing Cardiac exam reveals regular heart sounds S1 and S2 no gallops no murmurs Abdomen is soft with moderate tenderness mostly in the periumbilical area no organomegaly no palpable masses Extremity exam reveals no edema no cyanosis or clubbing Neurological examination reveals no gross focal deficits Results CBC & Chem 7: 07/31/22 06:24 07/31/22 06:24 Labs: Abnormal Lab Results - Last 24 Hours (Table) 07/30/22 07/30/22 07/30/22 Range/Units 16:55 16:55 16:55 WBC 15.0 H (3.8-10.6) k/uL Neutrophils # 13.6 H (1.3-7.7) k/uL Lymphocytes # 0.5 L (1.0-4.8) k/uL Potassium 3.2 L (3.5-5.1) mmol/L Chloride 110 H (98-107) mmol/L Carbon Dioxide 20 L (22-30) mmol/L Creatinine 0.59 L (0.66-1.25) mg/dL Glucose 114 H (74-99) mg/dL Plasma Lactic Acid Riaz 2.2 H* (0.7-2.0) mmol/L Calcium 7.2 L (8.4-10.2) mg/dL Total Protein 5.4 L (6.3-8.2) g/dL Albumin 2.9 L (3.5-5.0) g/dL Assessment and Plan Plan: Acute appendicitis Sepsis as evidenced by leukocytosis fever and elevated lactic acid No significant past medical history Patient is admitted to surgical floor He is scheduled for appendectomy today He was started on IV antibiotics and on IV fluid and pain management Will follow closely
[2022-07-31] MEDS ORDERED: BUPIVACAINE (PF) 0.25% 30 ML VIAL SQ ONE ×2 (21:07→22:11)
[2022-07-31] MEDS ORDERED: GLYCOPYRROLATE 0.2 MG/ML 2 ML VIAL ONE (21:46)
[2022-07-31] MEDS ORDERED: DEXAMETHASONE SOD PHOS (MDV) 100 MG/10 ML VIAL ONE (21:46)
[2022-07-31] MEDS ORDERED: KETOROLAC 15 MG/ML 1 ML VIAL ONE (21:46)
[2022-07-31] MEDS ORDERED: ROCURONIUM 10 MG/ML (5 ML VIAL) IV ONE (21:46)
[2022-07-31] MEDS ORDERED: fentaNYL (PF) 50 MCG/ML 2 ML AMP ONE (21:46)
[2022-07-31] MEDS ORDERED: PROPOFOL 10 MG/ML 20 ML VIAL IV ONE (21:46)
[2022-07-31] MEDS ORDERED: MIDAZOLAM 2 MG/2 ML VIAL ONE (21:46)
[2022-07-31] MEDS ORDERED: ONDANSETRON 4 MG/2 ML VIAL ONE (21:46)
[2022-07-31] MEDS ORDERED: NEOSTIGMINE 1 MG/ML 10 ML VIAL ONE (21:46)
[2022-07-31] MEDS ORDERED: LACTATED RINGERS 1,000 ML IV ONE ×2 (21:46→22:30)
[2022-07-31] MEDS ORDERED: MEPERIDINE 50 MG/ML SYRINGE IVP ONE (22:50)
[2022-07-31] MEDS ORDERED: ACETAMINOPHEN IV (For NPO) 1,000 MG in EMPTY BAG 1 BAG IVPB ONE (23:02)
--- NOTE | 2022-07-31 23:07 | P.OP ---
Date of Procedure: 07/31/22 Description of Procedure: SURGEON: KELLIE AHUMADA MD Preoperative Diagnosis: 1. Acute appendicitis 2. Severe sepsis present on admission 3. Septic shock Postoperative Diagnosis: 1. Acute appendicitis with periappendicitis, without rupture 2. Severe sepsis present on admission 3. Septic shock Procedure(s) Performed: 1. Robotic-assisted daVinci Xi laparoscopic appendectomy Anesthesia: GETA, local Estimated Blood Loss (ml): 5 Pathology: other (appendix) Condition: stable Disposition: floor Operative Findings: 1. Acute appendicitis without rupture with periappendicitis 2. Terminal ileum unremarkable 3. Cecum unremarkable INDICATIONS: The patient is a 41-year-old male who presents with acute appendicitis. Benefits and risks, including infection, open surgery, and bleeding for additional surgery was discussed at length. Informed consent was obtained. All questions of the patient and family were answered. DESCRIPTION: The patient was transferred to the operating room and placed in supine position. The patient had previously voided. The abdomen was then prepped and draped in standard sterile fashion as Ioban was placed along the abdomen to minimize any contamination of skin floor. After a timeout protocol was performed, attention was then brought to the left upper quadrant whereby a 0 degree 5 mm laparoscopic trocar entry was performed. The abdominal cavity was entered and insufflated to 12 mmHg pressure, which was tolerated well. Diagnostic laparoscopy demonstrated no injury to bowel, viscera or mesentery. Next a robotic 8-mm trocar was placed along the left lower quadrant, 10-cm lateral to the midline. A 12 mm port was placed along the left upper quadrant and another 8-mm port left lateral abdominal wall. Ports were placed 8 cm apart from each other including 15-20 cm away from the target anatomy of the right pelvis. The patient was then placed in Trendelenburg position, at least 7 down and right side up at least 7. The robotic da Jasper XI system was primed and docked from the left side of the patient. Using atraumatic graspers and vessel sealer, the robotic system was docked and primed as described. Instruments were interchanged by the graduate research assistant including graspers, robotic stapler and vessel sealer. Next, attention was brought to identify the cecum. A systematic view within the abdominal cavity was started with the small bowel which was unremarkable. The base of the cecum was unremarkable. The body of the appendix was dilated with periappendicitis. No perforation was identified. The appendix was dissected free from its surrounding tissues. Blue 45 mm robotic staple loads were fired along the base of the appendix. The staple line was hemostatic. Hemostasis was checked prior to undocking the robot. The robot was undocked. I re-scrubbed into the case. The specimen was removed from the abdominal cavity with an Endo Catch bag through the 12 mm trocar at the left upper quadrant. All instruments and pneumoperitoneum were evacuated from the abdominal cavity. Local anesthetic was infiltrated to all wounds for postop analgesia. All incisions were also cleansed with diluted hydrogen peroxide. The incisions were closed with 4-0 Monocryl. Exofin glue was applied to the rest of the skin incisions. The patient had tolerated the procedure well. The patient was extubated successfully. The patient was transferred to the postanesthesia care unit in stable condition.
[2022-07-31] MEDS ORDERED: HYDROmorphone 0.5 MG/0.5 ML SYRINGE IVP ONE (23:15)
[2022-08-01] MEDS: PIPERACILLIN-TAZOBACTAM 3.375 GM in SODIUM CHLORIDE 0.9% 100 ML IVPB SCH ×3 (00:23→15:01)
[2022-08-01] MEDS: KETOROLAC 15 MG/ML 1 ML VIAL IVP SCH ×3 (00:23→12:31)
[2022-08-01] MEDS: SODIUM CHLORIDE 0.9% 1,000 ML with POTASSIUM CHLORIDE 40 MEQ IV SCH ×4 (02:25→17:04)
[2022-08-01] MEDS: HEPARIN SODIUM,PORCINE/PF 5,000 UNIT/0.5 ML SYRINGE SQ SCH (08:16)
[2022-08-01 11:04] LABS: Basophils # (A) 0.01 X 10*3/uL (0.00-0.10); Basophils % (A) 0.1 %; Eosinophils # (A) 0 X 10*3/uL (0.04-0.35); Eosinophils % (A) 0 %; HCT 43.3 % (39.6-50.0); Immature Grans, Automated 0.5 %; Lymphocytes # (A) 0.66 X 10*3/uL (0.90-5.00); Lymphocytes % (A) 6.9 %; MCH 27.8 pg (27.0-32.0); MCHC 32.3 g/dL (32.0-37.0); MCV 86.1 fL (80.0-97.0); Monocytes # (A) 0.15 X 10*3/uL (0.20-1.00); Monocytes % (A) 1.6 %; NRBC Per 100 WBC 0 /100 WBCS (0.0-0.0); Neutrophils # (A) 8.63 X 10*3/uL (1.80-7.70); Neutrophils % (A) 90.9 %; Platelet Count 211 X 10*3/uL (140-440); RBC 5.03 X 10*6/uL (4.40-5.60); RDW 13.2 % (11.5-14.5)
[2022-08-01 11:07] LABS: African American GFR (CKD) 107.9 (60.0-200.0); Albumin 3.7 g/dL (3.8-4.9); Albumin/Globulin Ratio 1.37 (1.60-3.17); Anion Gap 11.8 mmol/L (10.00-18.00); BUN/Creat Ratio 9.1 Ratio (12.00-20.00); Blood Urea Nitrogen 9.1 mg/dL (9.0-27.0); Calcium 9.2 mg/dL (8.7-10.3); Carbon Dioxide 20.2 mmol/L (20.0-27.5); Globulin 2.7 g/dL (1.6-3.3); Non-African American GFR(CKD) 93.1 (60.0-200.0); Potassium 4.8 mmol/L (3.5-5.5); Total Bilirubin 0.9 mg/dL (0.30-1.20); Total Protein 6.4 g/dL (6.2-8.2)
[2022-08-01] MEDS ORDERED: TAMSULOSIN 0.4 MG CAP.ER.24H PO STA (11:14)
--- NOTE | 2022-08-01 12:19 | CDI ---
Documentation Clarification Form Date: 08/01/2022 12:00:34 PM From: Kimberlyn Marquis RN, CCDS Admit Date: 07/30/2022 6:07:00 PM Patient Name: Mahin Elizabeth Visit Number: [id number] Discharge Date: ATTENTION: The Clinical Documentation Specialists (CDI) and [facility] Coding Staff appreciate your assistance in clarifying documentation. Please respond to the clarification below the line at the bottom and electronically sign. The CDI & [facility] Coding staff will review the response and follow-up if needed. Please note: Queries are made part of the Legal Health Record. If you have any questions, please contact the author of this message via ITS. Dr. Nelda Benavidez The patient has Sepsis documented in the Internal Medicine consult on 07/31/2022. Based on this information and the findings below, is there an additional diagnosis that is clinically appropriate for this patient? 07/31 Internal Medicine (Dr. Beverly) Sepsis as evidenced by leukocytosis fever and elevated lactic acid. History/Risk Factors: None reported. Clinical Indicators: 41-year-old male present with complaint of abdominal pain. 07/30 VS: 117/81 117 18 98.1 97 % RA, 129/85 117 19 100.7 07/30 WBC 15.0 Neutrophils 13.6 Potassium 3.2, Lactic acid 2.2 07/30 CT Abd/Pelvis: Acute uncomplicated appendicitis. Treatment: Zosyn 3.375 GM IVPB Q 8 HRS .9 NS 1,000 ML Bolus .9NS with Potassium Chloride 40 kelvin IV @ 75 MLS/HR 07/30-08/01 07/31 Robotic-assisted daVinci Xi laparoscopic appendectomy Is there an additional diagnosis that is clinically appropriate for this patient? [ X ] Sepsis, present on admission [ ] Sepsis ruled out [ ] Other, please specify [ ] Unable to determine SIRS Criteria: 2 or more of the following may indicate SIRS Temperature < 96.8F (36C) or > 101.0F (38.3C) Heart Rate > 90 bpm Respiratory Rate > 20 breaths/min or PaCO2 < 32 mmHg White Blood Cell Count > 12,000 or < 4,000 cells/mm3 or > 10% bands (Template Last Reviewed: March 2022) Patient presents with SEVERE SEPSIS present on admission per sepsis calculatorNato SERRANO
[2022-08-01 14:23] VITALS: BP 138/81; PULSE 80; RESP 16; TEMP 97.7
[2022-08-02] MEDS ORDERED: TAMSULOSIN 0.4 MG CAP.ER.24H PO SCH (08:30)
--- NOTE | 2022-08-04 06:18 | P.PN ---
Subjective Progress Note Date: 08/01/22 tresa Elizabeth, is a 41-year-old male who presented to [facility] emergency room with a chief complaint of abdominal pain He was evaluated in the emergency room vital examination on presentation revealed a temperature of 100.7 pulse 117 respiration 19 and blood pressure 129/85 pulse ox 96% on room air Laboratory data revealed a white blood count of 15.0 hemoglobin 14.9 platelet count 209 sodium 137 potassium 3.2 chloride 110 CO2 20 BUN 9 creatinine 0.59 lactic acid 2.2 Testing in the emergency room revealed computed tomography scan of the abdomen and pelvis was done in the emergency room and revealed evidence of acute uncomplicated appendicitis Patient was admitted to medical floor for further evaluation and treatment 08/01/2022 Patient is seen and evaluated in follow-up status post appendectomy with Dr. Spence currently maintained on IV antibiotics and being closely monitored. Patient reports he did not eat and per nursing staff unsure if he received a tray although there is a diet order in the computer. Patient to eat prior to leaving. Patient also having some postop urinary retention and is able to void somewhat although not fully emptying requiring straight catheterization as postvoid residuals were above 300. Patient to be started on Flomax and closely monitored for intake and output. Patient is currently afebrile denies chest pain or shortness of breath no reports of nausea or vomiting and currently awaiting to eat Review of systems: Constitutional: No reports of fatigue, fever, or chills Cardiovascular: No reports of chest pain or palpitations Respiratory: No reports of shortness of breath or cough GI: reports of nausea, no reports of of vomiting, : reports of some mild retention and not bladder emptying Neurovascular: No reports of generalized weakness All medications have been reviewed PHYSICAL EXAMINATION: GENERAL: The patient is alert and oriented x4, Well developed, well nourished. HEENT: Pupils are round and equally reacting to light. EOMI. no scleral icterus. No conjunctival pallor. Normocephalic, atraumatic. No pharyngeal erythema. No thyromegaly. CARDIOVASCULAR: S1 and S2 muffled PULMONARY: diminished breath sounds bilaterally with no wheezing or rhonchi noted. ABDOMEN: soft. Mildly tender on exam. non-distended, normoactive bowel sounds. No palpable organomegaly. MUSCULOSKELETAL: No joint swelling or deformity. EXTREMITIES: No cyanosis, clubbing, or pedal edema. NEUROLOGICAL: Gross neurological examination did not reveal any focal deficits. SKIN: No rashes. Assessment: Acute appendicitis with features of sepsis, present on admission, status post laparoscopic appendectomy Leukocytosis with fevers, secondary to above Postoperative urinary retention an outcome of surgical intervention, improving GI prophylaxis DVT prophylaxis Full code Plan: Recommend to continue with current medications and management per general surgery services. Patient is status post appendectomy and per patient and mother at the bedside patient has not eaten yet although there is a regular diet in the computer. Recommend feeding the patient and monitoring for tolerance Patient with some mild abdominal discomfort and encouraged to increase activity as tolerated Patient having some mild urinary retention and is voiding also not fully emptying and post void residuals are greater than 300 requiring straight catheterization 2. Recommend initiating Flomax and will continue for 1 week. Recommend monitoring intake and output over the next few hours and if residuals improve okay for discharge Recommend follow-up with primary care provider in the outpatient setting Patient is medically stable for discharge today Thank you kindly for this consultation and we will continue to follow during hospitalization The impression and plan of care has been dictated by nurse Howard pra ctitioner as directed. Dr. Enrrique MD I have performed a history and examination and MDM of this patient, discussed the same with the dictator, and agree with the dictator's assessment and plan as written ,documented as a scribe. Based on total visit time, I have performed more than 50% of the visit. Any additional findings or plans will be noted. Objective - Vital Signs Vital signs: Vital Signs Temp 98.4 F 08/01/22 07:24 Pulse 107 H 08/01/22 07:24 Resp 18 08/01/22 07:24 BP 129/78 08/01/22 07:24 Pulse Ox 98 08/01/22 07:24 FiO2 Intake & Output 07/31/22 08/01/22 08/01/22 18:59 06:59 18:59 Intake Total 2450 Output Total 655 250 Balance 1795 -250 Intake: IV 1250 Intake, IV Titration 900 Amount ACETAMINOPHEN IV (For NPO 100 ) 1,000 mg In Empty Bag 1 bag @ 400 mls/hr IVPB ONCE ONE Rx#:[id number] Piperacillin-Tazobactam 3 100 .375 gm In Sodium Chloride 0.9% 100 ml @ 25 mls/hr IVPB Q8HR HARRY Rx# :[id number] Sodium Chloride 0.9% 1, 700 000 ml @ 75 mls/hr IV . [id number] HARRY with Potassium Chloride 40 meq Rx#:[id number] Oral 300 Output: Urine 650 250 Straight 550 Estimated Blood Loss 5 Other: Voiding Method Toilet # Voids 2 1 - Labs CBC & Chem 7: 08/01/22 06:03 08/01/22 06:03 Labs: Abnormal Lab Results - Last 24 Hours (Table) 07/31/22 07/31/22 Range/Units 06:24 06:24 WBC 11.47 H (4.50-10.00) X 10*3/uL Neutrophils # 9.10 H (1.80-7.70) X 10*3/uL Anion Gap 8.90 L (10.00-18.00) mmol/L BUN/Creatinine Ratio 10.70 L (12.00-20.00) Ratio
--- NOTE | 2022-08-24 18:00 | P.DS ---
Providers Date of admission: 07/30/22 18:07 Expected date of discharge: 08/01/22 Attending physician: Nelda Benavidez Consults: 07/30/22 18:21 Consult Physician Routine Consulting Provider: Kenn Beverly Consult Reason/Comments: appendicitis Do you want consulting provider notified?: Yes, Notify in am Primary care physician: Kenn Beverly [facility] Course: Postoperative Diagnosis: 1. Acute appendicitis with periappendicitis, without rupture 2. Severe sepsis present on admission 3. Septic shock CHIEF COMPLAINT: Acute appendicitis HISTORY OF PRESENT ILLNESS: The patient is a 41-year-old male admitted for acute appendicitis with sepsis present on admission. He had leukocytosis with fevers, tachycardia and lactic acidosis with severe sepsis upon admission. He underwent uncomplicated robotic appendectomy. Prior to discharge, his right lower quadrant abdominal pain had improved. Non-narcotic pain management was prescribed. Patient was stable for discharge. ROS: No reports of nausea and vomiting. No new chest pain. No productive sputum PHYSICAL EXAM: VITAL SIGNS: Reviewed CONSTITUTIONAL: Well developed and in no acute distress. EYES: Conjuctivae without sclera icterus. Extraocular movements grossly intact. HEAD, EARS, NOSE, THROAT: Moist buccal mucosa. Head is atraumatic, normocephalic. Hears conversational speech. No nasal drainage. RESPIRATORY: Non-labored respirations and equal bilateral excursions. CARDIOVASCULAR: Palpable 2+ radial pulses. ABDOMEN: Incisions clean dry intact. MUSCULOSKELETAL: No gross deformity of the lower extremities noted. No clubbing. No cyanosis. SKIN: Good skin turgor. Well perfused. NEUROLOGIC: Cranial nerves II through XII grossly intact. No focal or lateralizing signs. PSYCH: Appropriate affect. Alert and oriented to person, place and time. CLINICAL LABS: Reviewed. WBC resolved, normal. ASSESSMENT: 1. Acute appendicitis with sepsis present on admission PLAN: 1. Overall stable for discharge with follow telehealth one week Procedures: Procedure(s) Performed: 1. Robotic-assisted daVinci Xi laparoscopic appendectomy Anesthesia: GETA, local Estimated Blood Loss (ml): 5 Pathology: other (appendix) Condition: stable Disposition: floor Operative Findings: 1. Acute appendicitis without rupture with periappendicitis 2. Terminal ileum unremarkable 3. Cecum unremarkable Patient Condition at Discharge: Stable Plan - Discharge Summary Discharge Rx Participant: No New Discharge Prescriptions: New Simethicone [Gas-X] 125 mg PO AC-TID PRN #20 capsule PRN Reason: Pain Ibuprofen [Motrin] 600 mg PO Q8HR PRN #30 tab PRN Reason: Pain Acetaminophen Tab [Tylenol Tab] 1,000 mg PO Q6HR PRN #30 tablet PRN Reason: Pain Tamsulosin [Flomax] 0.4 mg PO PC-BRKFST #7 cap Discharge Medication List Acetaminophen Tab [Tylenol Tab] 1,000 mg PO Q6HR PRN #30 tablet 07/31/22 [Rx] Ibuprofen [Motrin] 600 mg PO Q8HR PRN #30 tab 07/31/22 [Rx] Simethicone [Gas-X] 125 mg PO AC-TID PRN #20 capsule 07/31/22 [Rx] Tamsulosin [Flomax] 0.4 mg PO PC-BRKFST #7 cap 08/01/22 [Rx] Follow up Appointment(s)/Referral(s): Nelda Benavidez MD [STAFF PHYSICIAN] - 08/05/22 (TELEHEALTH - DR CALLS YOU) Kenn Beverly MD [Primary Care Provider] - 08/05/22 3:45 pm Patient Instructions/Handouts: *Surgery [facility] - Managing Your Pain After Surgery Without Opioids, Appendicitis (GEN), Laparoscopic Appendectomy (DC) Activity/Diet/Wound Care/Special Instructions: No lifting over 10 pounds in 2 weeks until August 14. July shower. No bath tub soaks for two weeks until August 14.. Diet as tolerated. Use Tylenol, simethicone and ibuprofen or Aleve scheduled for the next 24-48 hours for best pain relief. Use ice along incisions for today to prevent swelling. Discharge Disposition: HOME SELF-CARE
== END 2022-08-01 17:05 | disposition home or self-care (01) | DRG 854 ==
LOC: EC 16:03 → 5NMEDONC 18:07
PROVIDERS: ADMIT Surgery Plastic and Reconstructive Surgery; ATTEND Surgery Plastic and Reconstructive Surgery
PROC: 0DTJ4ZZ Resection of Appendix, Percutaneous Endoscopic Approach (ICD-10-PCS; principal; 2022-07-31 11:30)
PROC: 8E0W4CZ Robotic Assisted Procedure of Trunk Region, Percutaneous Endoscopic Approach (ICD-10-PCS; principal; 2022-07-31 11:30)
DX: A41.9 Sepsis, unspecified organism (principal); K35.80 Unspecified acute appendicitis; R65.20 Severe sepsis without septic shock; R33.8 Other retention of urine; E87.6 Hypokalemia; K21.9 Gastro-esophageal reflux disease without esophagitis; R47.9 Unspecified speech disturbances; Z28.310 Unvaccinated for COVID-19
CPT/HCPCS: 36415; 74177; 80048; 80053; 81003; 82150; 83605; 83690; 85025; 88304; 96361; 96365; 96375; 99285

== ENCOUNTER → 2023-01-28 | Outpatient (CLI) | payer MEDICARE, OTHER ==
--- NOTE | 2023-01-28 09:12 | XR ---
EXAMINATION TYPE: XR chest 2V DATE OF EXAM: 01/28/2023 9:07 AM COMPARISON: None TECHNIQUE: XR chest 2V Frontal and lateral views of the chest. CLINICAL INDICATION:Male, 42 years old with history of R07.9 UNSPECIFIED CHEST PAIN; FINDINGS: Lungs/Pleura: There is no evidence of pleural effusion, focal consolidation, or pneumothorax. Pulmonary vascularity: Unremarkable. Heart/mediastinum: Cardiomediastinal silhouette is unremarkable. Musculoskeletal: No acute osseous pathology. IMPRESSION: No acute cardiopulmonary disease/process.
== END | disposition home or self-care (01) ==
LOC: RADXRMAIN 08:53
PROVIDERS: ATTEND Internal Medicine
DX: R07.9 Chest pain, unspecified (principal)
CPT/HCPCS: 71046

== ENCOUNTER 2023-10-13 11:23 | Emergency (ER) | payer MEDICARE, OTHER ==
[2023-10-13 11:28] VITALS: RESP 18
--- NOTE | 2023-10-13 11:34 | ED ---
ENT HPI - General Chief complaint: Dental/Oral Stated complaint: dental pain/swelling Time Seen by Provider: 10/13/23 11:33 Source: patient, RN notes reviewed Mode of arrival: ambulatory Limitations: no limitations - History of Present Illness Initial comments: This is a 42-year-old male presents emergency department chief complaint of lower frontal dental pain over the past few days. Patient denies symptoms of fevers, chills, nausea, vomiting, shortness of breath, chest pain, dizziness, lightheadedness or fatigue. Patient states that he has not seen a dentist in a few years. The pain is located to the maxillary front teeth. no other acute complaints at this time. - Related Data Previous Rx's Medication Instructions Recorded Acetaminophen Tab [Tylenol Tab] 1,000 mg PO Q6HR PRN #30 tablet 07/31/22 Ibuprofen [Motrin] 600 mg PO Q8HR PRN #30 tab 07/31/22 Simethicone [Gas-X] 125 mg PO AC-TID PRN #20 capsule 07/31/22 Tamsulosin [Flomax] 0.4 mg PO PC-BRKFST #7 cap 08/01/22 Amoxicillin 500 mg PO Q8H #30 capsule 10/13/23 Ketorolac [Toradol] 10 mg PO Q8HR PRN #15 tab 10/13/23 Allergies Allergy/AdvReac Type Severity Reaction Status Date / Time No Known Allergies Allergy Verified 10/13/23 11:28 Review of Systems ROS Statement: Those systems with pertinent positive or pertinent negative responses have been documented in the HPI. ROS Other: All systems not noted in ROS Statement are negative. Past Medical History Past Medical History: No Reported History History of Any Multi-Drug Resistant Organisms: None Reported Past Surgical History: Appendectomy Past Psychological History: No Psychological Hx Reported Smoking Status: Never smoker Past Alcohol Use History: None Reported Past Drug Use History: None Reported General Exam Limitations: no limitations General appearance: alert, in no apparent distress Head exam: Present: atraumatic, normocephalic, normal inspection Eye exam: Present: normal appearance, PERRL, EOMI. Absent: scleral icterus, conjunctival injection, periorbital swelling ENT exam: Present: normal exam, mucous membranes moist Expanded Mouth exam: Present: normal external inspection. Absent: drooling, trismus Teeth exam: Present: dental caries, gingival enlargement. Absent: normal inspection Throat exam: normal inspection. negative: tonsillar erythema, tonsillomegaly Neck exam: Present: normal inspection. Absent: tenderness, meningismus, lymphadenopathy Respiratory exam: Present: normal lung sounds bilaterally. Absent: respiratory distress, wheezes, rales, rhonchi, stridor Cardiovascular Exam: Present: regular rate, normal rhythm, normal heart sounds. Absent: systolic murmur, diastolic murmur, rubs, gallop, clicks GI/Abdominal exam: Present: soft, normal bowel sounds. Absent: distended, tenderness, guarding, rebound, rigid Extremities exam: Present: normal inspection, full ROM, normal capillary refill. Absent: tenderness, pedal edema, joint swelling, calf tenderness Back exam: Present: normal inspection Neurological exam: Present: alert, oriented X3, CN II-XII intact Psychiatric exam: Present: normal affect, normal mood Skin exam: Present: warm, dry, intact, normal color. Absent: rash Course Vital Signs 10/13/23 10/13/23 11:25 12:22 Temperature 97.4 F L 97.7 F Pulse Rate 92 81 Respiratory 18 18 Rate Blood Pressure 118/83 122/86 O2 Sat by Pulse 96 96 Oximetry Medical Decision Making - Medical Decision Making Was pt. sent in by a medical professional or institution (Dr. PA, WATER RESOURCE ENGINEER, urgent care, hospital, or alf...) When possible be specific @ -No Did you speak to anyone other than the patient for history (EMS, parent, family, police, friend...)? What history was obtained from this source @ -No Did you review nursing and triage notes (agree or disagree)? Why? @ -I reviewed and agree with nursing and triage notes Were old charts reviewed (outside hosp., previous admission, EMS record, old EKG, old radiological studies, urgent care reports/EKG's, alf records)? Report findings @ -No old charts were reviewed Differential Diagnosis (chest pain, altered mental status, abdominal pain women, abdominal pain men, vaginal bleeding, weakness, fever, dyspnea, syncope, headache, dizziness, GI bleed, back pain, seizure, CVA, palpatations, mental hea lth, musculoskeletal)? @ -dental pain, dental cavities, gingivitis, dental abscess, pulpitis, this list is not all inclusive EKG interpreted by me (3pts min.). @ -none X-rays interpreted by me (1pt min.). @ -None done CT interpreted by me (1pt min.). @ -None done U/S interpreted by me (1pt. min.). @ -None done What testing was considered but not performed or refused? (CT, X-rays, U/S, labs)? Why? @ -None What meds were considered but not given or refused? Why? @ -None Did you discuss the management of the patient with other professionals (professionals i.e. , PA, WATER RESOURCE ENGINEER, lab, RT, psych nurse, social work faculty member, pie chef, teacher, civil preparedness officer, window caser)? Give summary @ -No Was smoking cessation discussed for >3mins.? @ -No Was critical care preformed (if so, how long)? @ -No Were there social determinants of health that impacted care today? How? (Homelessness, low income, unemployed, alcoholism, drug addiction, transportation, low edu. Level, literacy, decrease access to med. care, skilled nursing, rehab)? @ -No Was there de-escalation of care discussed even if they declined (Discuss DNR or withdrawal of care, Hospice)? DNR status @ -No What co-morbidities impacted this encounter? (DM, HTN, Smoking, COPD, CAD, Cancer, CVA, ARF, Chemo, Hep., AIDS, mental health diagnosis, sleep apnea, morbid obesity)? @ -None Was patient admitted / discharged? Hospital course, mention meds given and route, prescriptions, significant lab abnormalities, going to OR and other pertinent info. @ -Discharge. 42-year-old male with dental pain. On examination patient does not have overall poor dentition. There is point tenderness to the mandibular frontal teeth with signs of gingival enlargement and gingivitis. Patient will be sent a prescription for amoxicillin and ibuprofen to take as needed for pain relief. Instruct patient to complete full course of antibiotics as prescribed. Recommend that patient establish care with a dentist within the next week and reports for further evaluation. All questions answered at bedside and strict return parameters discussed with the patient and he is verbalized understanding. Case discussed with Dr. Huizar. Undiagnosed new problem with uncertain prognosis? @ -No Drug Therapy requiring intensive monitoring for toxicity (Heparin, Nitro, Insulin, Cardizem)? @ -No Were any procedures done? @ -No Diagnosis/symptom? @ -dental pain, dental carries, gingivitis Acute, or Chronic, or Acute on Chronic? @ -acute Uncomplicated (without systemic symptoms) or Complicated (systemic symptoms)? @ -uncomplicated Side effects of treatment? @ -No Exacerbation, Progression, or Severe Exacerbation? @ -No Poses a threat to life or bodily function? How? (Chest pain, [place], [place], pneumonia, PE, COPD, DKA, ARF, appy, cholecystitis, CVA, Diverticulitis, Homicidal, Suicidal, threat to staff... and all critical care pts) @ -No Disposition Clinical Impression: Pain, dental, Gingivitis Disposition: HOME SELF-CARE Condition: Good Instructions (If sedation given, give patient instructions): Gingivitis (ED), Toothache (ED) Additional Instructions: Complete full course of antibiotics as prescribed. Take Toradol as needed for pain relief. Recommend follow-up with dentist for further evaluation. Return to the emergency department for any new or worsening symptoms. Prescriptions: Amoxicillin 500 mg PO Q8H #30 capsule Ketorolac [Toradol] 10 mg PO Q8HR PRN #15 tab PRN Reason: Pain Is patient prescribed a controlled substance at d/c from ED?: No Referrals: Kenn Beverly MD [Primary Care Provider] - 1-2 days Time of Disposition: 12:07
[2023-10-13 12:35] VITALS: BP 122/86; PULSE 81; TEMP 97.7
== END 2023-10-13 12:22 | disposition home or self-care (01) ==
LOC: EC 11:23
DX: K05.10 Chronic gingivitis, plaque induced (principal); K08.89 Other specified disorders of teeth and supporting structures
CPT/HCPCS: 99282